=== PATIENT | female | born 1980 | race Caucasian/White ===

== ENCOUNTER 2016-08-14 09:17 | Emergency (ER) | payer OTHER ==
[~2016-08-14] VITALS: Ht 165.1 cm; Wt 66.2 kg
[~2016-08-14 09:17] MED LIST: AMOX875T PO
[2016-08-14] MEDS ORDERED: IV NORMAL SALINE 1000ML BAG 1,000 ML IV ONE (09:45)
[2016-08-14] MEDS ORDERED: KETOROLAC TROMETHAMINE 30 MG/ML INJ. IV ONE (09:45)
[2016-08-14 09:56] LABS: BILIRUBIN,URINE NEGATIVE (NEG); GLUCOSE,URINE NEGATIVE (NEG); NITRITE,URINE NEGATIVE (NEG); PROTEIN,URINE NEGATIVE (NEG-TRACE); UROBILINOGEN,URINE 0.2 mg/dL (0.2 mg/dL)
[2016-08-14 10:17] LABS: BACTERIA,URINE MOD /HPF (0-FEW); RBC,URINE 0 /HPF (0-2); SQUAMOUS EPITHELIAL CELL,UR MOD /LPF
--- NOTE | 2016-08-14 10:24 | PHYS DOC ---
Past Medical History Past Medical History: Asthma Past Surgical History: , Tonsillectomy, Tubal ligation Additional Past Surgical Histo: BILAT MYRINGOTOMY W/ TUBES Alcohol Use: None Drug Use: None Adult General Chief Complaint Chief Complaint: ABDOMINAL PAIN HPI HPI Patient is a 36 year old female with history of asthma who presents today with mild right sided abdominal pain that began 2 days ago when her menstrual cycle began. Patient denies any chance she is , she states she's had a tubal ligation. Denies any urgency frequency or dysuria. Denies any fever. Denies any nausea vomiting. Patient states she also has right flank pain and fevers. Review of Systems Review of Systems Constitutional: Denies fever or chills [] Eyes: Denies change in visual acuity, redness, or eye pain [] HENT: Denies nasal congestion or sore throat [] Respiratory: Denies cough or shortness of breath [] Cardiovascular: No additional information not addressed in HPI [] GI: Right sided abdominal : right flank pain Musculoskeletal: Denies back pain or joint pain [] Integument: Denies rash or skin lesions [] Neurologic: Denies headache, focal weakness or sensory changes [] Endocrine: Denies polyuria or polydipsia [] Current Medications Current Medications Current Medications Medications (Trade) Dose Ordered Sig/Jana Start Time Stop Time Status Last Admin Dose Admin Info (Do NOT chart on this entry -- for MONITORING) 1 each PRN DAILY PRN 08/14/16 11:00 08/16/16 10:59 Iohexol (Omnipaque 300 Mg/ml) 75 ml 1X ONCE 08/14/16 11:00 08/14/16 11:01 DC Ketorolac Tromethamine (Toradol) 30 mg 1X ONCE 08/14/16 09:45 08/14/16 09:46 DC 08/14/16 10:00 30 MG Sodium Chloride 1,000 ml @ 1,000 mls/hr 1X ONCE 08/14/16 09:45 08/14/16 10:44 DC 08/14/16 10:00 1,000 MLS/HR Allergies Allergies Allergies Coded Allergies Type Severity Reaction Last Updated Verified codeine Allergy Unknown Nausea and Vomiting 05/28/14 No Physical Exam Physical Exam Constitutional: Well developed, well nourished, no acute distress, non-toxic appearance. [] HENT: Normocephalic, atraumatic, bilateral external ears normal, oropharynx moist, no oral exudates, nose normal. [] Eyes: PERRLA, EOMI, conjunctiva normal, no discharge. [] Neck: Normal range of motion, no tenderness, supple, no stridor. [] Cardiovascular:Heart rate regular rhythm, no murmur [] Lungs & Thorax: Bilateral breath sounds clear to auscultation [] Abdomen: Bowel sounds normal, soft, no tenderness, no masses, no pulsatile masses. Negative psoas sign, negative obturator sign, negative Rovsing sign No guarding no rebound pain or tenderness Pelvic exam External pelvic appears normal. Cervix not well visualized. No CMT. No adnexal tenderness. Small amount of bright red blood in the vaginal vault. Skin: Warm, dry, no erythema, no rash. [] Back: No tenderness, no CVA tenderness. [] Extremities: No tenderness, no cyanosis, no clubbing, ROM intact, no edema. [] Neurologic: Alert and oriented X 3, normal motor function, normal sensory function, no focal deficits noted. [] Psychologic: Affect normal, judgement normal, mood normal. [] Current Patient Data Vital Signs Vital Signs Date Time Temp Pulse Resp B/P (MAP) Pulse Ox O2 Delivery O2 Flow Rate FiO2 08/14/16 09:25 98.4 88 18 128/76 (93) 100 Room Air 98.4 Lab Values Laboratory Tests Test 08/14/16 09:40 08/14/16 09:55 Urine Collection Type Unknown Urine Color Yellow Urine Clarity Clear Urine pH 6.0 Urine Specific [place] <=1.005 Urine Protein Negative mg/dL (NEG-TRACE) Urine Glucose (UA) Negative mg/dL (NEG) Urine Ketones (Stick) Negative mg/dL (NEG) Urine Blood Moderate (NEG) Urine Nitrite Negative (NEG) Urine Bilirubin Negative (NEG) Urine Urobilinogen Dipstick 0.2 mg/dL (0.2 mg/dL) Urine Leukocyte Esterase Moderate (NEG) Urine RBC 0 /HPF (0-2) Urine WBC 11-20 /HPF (0-4) Urine Squamous Epithelial Cells Mod /LPF Urine Bacteria Mod /HPF (0-FEW) White Blood Count 9.1 x10^3/uL (4.0-11.0) Red Blood Count 3.99 x10^6/uL (3.50-5.40) Hemoglobin 9.6 g/dL (12.0-15.5) L Hematocrit 29.7 % (36.0-47.0) L Mean Corpuscular Volume 75 fL (79-100) L Mean Corpuscular Hemoglobin 24 pg (25-35) L Mean Corpuscular Hemoglobin Concent 32 g/dL (31-37) Red Cell Distribution Width 18.3 % (11.5-14.5) H Platelet Count 189 x10^3/uL (140-400) Neutrophils (%) (Auto) 70 % (31-73) Lymphocytes (%) (Auto) 19 % (24-48) L Monocytes (%) (Auto) 10 % (0-9) H Eosinophils (%) (Auto) 1 % (0-3) Basophils (%) (Auto) 0 % (0-3) Neutrophils # (Auto) 6.3 x10^3uL (1.8-7.7) Lymphocytes # (Auto) 1.7 x10^3/uL (1.0-4.8) Monocytes # (Auto) 0.9 x10^3/uL (0.0-1.1) Eosinophils # (Auto) 0.0 x10^3/uL (0.0-0.7) Basophils # (Auto) 0.0 x10^3/uL (0.0-0.2) Sodium Level 139 mmol/L (136-145) Potassium Level 3.4 mmol/L (3.5-5.1) L Chloride Level 106 mmol/L (98-107) Carbon Dioxide Level 27 mmol/L (21-32) Anion Gap 6 (6-14) Blood Urea Nitrogen 4 mg/dL (7-20) L Creatinine 0.8 mg/dL (0.6-1.0) Estimated GFR (Cockcroft-Gault) 82.1 BUN/Creatinine Ratio 5 (6-20) L Glucose Level 109 mg/dL (70-99) H Calcium Level 8.6 mg/dL (8.5-10.1) Total Bilirubin 0.7 mg/dL (0.2-1.0) Aspartate Amino Transferase (AST) 22 U/L (15-37) Alanine Aminotransferase (ALT) 28 U/L (14-59) Alkaline Phosphatase 48 U/L (46-116) Total Protein 6.8 g/dL (6.4-8.2) Albumin 3.2 g/dL (3.4-5.0) L Albumin/Globulin Ratio 0.9 (1.0-1.7) L Lipase 98 U/L (73-393) Laboratory Tests 08/14/16 09:55 Laboratory Tests 08/14/16 09:55 Microbiology 08/14/16 Wet Prep - Final, Complete EKG EKG [] Radiology/Procedures Radiology/Procedures [] Course & Med Decision Making Course & Med Decision Making Pertinent Labs and Imaging studies reviewed. (See chart for details) This is a 36-year-old female patient who presents today with right sided abdominal pain that began 2 days ago when her menstrual cycle began, right flank pain and fevers. Patient is afebrile in the ED. CBC with a normal WBC. Hemoglobin 9.6, hematocrit 29.7, CMP lipase with no acute findings. Urine positive for UTI. Patient has no abdominal tenderness on exam. Patient's symptoms are probably from the UTI. Wet prep was also positive for bacterial vaginosis. Patient was discharged with Flagyl and Cipro for UTI. She is to follow-up with her own PCP in one week. She is provided return precautions and discharged in stable condition. Johan Disclaimer Johan Disclaimer This electronic medical record was generated, in whole or in part, using a voice recognition dictation system. Departure Departure Impression: Primary Impression: Urinary tract infection Additional Impressions: Bacterial vaginosis Anemia Disposition: 01 HOME, SELF-CARE Condition: STABLE Referrals: NO PCP (PCP) Follow-up with the primary care doctor in the next 3-7 days Patient Instructions: Bacterial Vaginosis, [id number], Fever, Adult, Urinary Tract Infection Additional Instructions: You were seen for urinary tract infection and bacterial vaginosis. Take the prescribed medicines as ordered. Ensure you complete your antibiotics. Your hemoglobin was 9.6. This is slightly low, it could be from your menstrual cycle. Consider taking [id number] vitamins. Follow-up with your doctor in the next 7 days. Come back to the ED symptoms worsen. Scripts Hydrocodone/Apap 5-325 (NORCO 5-325 TABLET) 1 Each Tablet 1-2 TAB PO Q4-6HRS, #10 TAB Prov: MUTUNGA,NICKOLAS RN FIRST ASSISTANT 6/28/17 Ciprofloxacin Hcl (CIPRO) 500 Mg Tablet 1 TAB PO BID, #14 TAB Prov: NICKOLAS KENDALL APRN 08/14/16 Metronidazole (FLAGYL) 500 Mg Tablet 1 TAB PO BID, #14 TAB Prov: NICKOLAS KENDALL APRN 08/14/16 Problem Qualifiers Primary Impression: Urinary tract infection Urinary tract infection type: site unspecified Hematuria presence: without hematuria Qualified Codes: N39.0 - Urinary tract infection, site not specified Additional Impressions: Anemia Anemia type: unspecified type Qualified Codes: D64.9 - Anemia, unspecified NICKOLAS KENDALL APRN Aug 14, 2016 10:24
[2016-08-14 10:42] LABS: BASO % 0 % (0-3); EOS % 1 % (0-3); HEMATOCRIT 29.7 % (36.0-47.0); HEMOGLOBIN 9.6 g/dL (12.0-15.5); LYMPH # 1.7 x10^3/uL (1.0-4.8); LYMPH % 19 % (24-48); MEAN CORPUSCULAR HEMOGLOBIN 24 pg (25-35); MEAN CORPUSCULAR HGB CONC 32 g/dL (31-37); MEAN CORPUSCULAR VOLUME 75 fL (79-100); MONO % 10 % (0-9); NEUT % 70 % (31-73); PLATELET COUNT 189 x10^3/uL (140-400); RED BLOOD COUNT 3.99 x10^6/uL (3.50-5.40); RED CELL DISTRIBUTION WIDTH 18.3 % (11.5-14.5); WHITE BLOOD COUNT 9.1 x10^3/uL (4.0-11.0)
[2016-08-14 10:46] LABS: CALCIUM 8.6 mg/dL (8.5-10.1); CREATININE 0.8 mg/dL (0.6-1.0); GFR 82.1; POTASSIUM 3.4 mmol/L (3.5-5.1)
[2016-08-14] MEDS ORDERED: CONTRAST GIVEN MC PRN (11:00)
[2016-08-14] MEDS ORDERED: IOHEXOL 300 MG/ML 75 ML VIAL IV ONE (11:00)
[2016-08-14 11:01] LABS: ALBUMIN 3.2 g/dL (3.4-5.0); ALBUMIN/GLOBULIN RATIO 0.9 (1.0-1.7); TOTAL BILIRUBIN 0.7 mg/dL (0.2-1.0); TOTAL PROTEIN 6.8 g/dL (6.4-8.2)
[2016-08-14] MEDS ORDERED: CIPR500T94 PO (11:17)
[2016-08-14] MEDS ORDERED: METR500T PO (11:17)
[2016-08-14] MEDS ORDERED: HYDR-971 PO (11:17)
[2016-08-14 11:32] VITALS: BP 117/65
== END 2016-08-14 11:30 | disposition home or self-care (01) ==
LOC: ER 09:17
DX: N39.0 Urinary tract infection, site not specified (principal); N76.0 Acute vaginitis; D64.9 Anemia, unspecified; J45.909 Unspecified asthma, uncomplicated; Z88.5 Allergy status to narcotic agent; Z98.51 Tubal ligation status; Z98.890 Other specified postprocedural states
CPT/HCPCS: 36415; 80053; 81001; 81025; 83690; 85027; 87491; 87591; 96361; 96374; 99284; J1885; J7030; Q0111

== ENCOUNTER 2016-12-08 04:08 | Emergency (ER) | payer OTHER ==
[~2016-12-08] VITALS: Ht 165.1 cm; Wt 66.2 kg
[~2016-12-08 04:08] MED LIST changes: +CIPR500T94 PO; +HYDR-971 PO; +METR500T PO
[2016-12-08 04:15] VITALS: BP 139/86
--- NOTE | 2016-12-08 04:31 | PHYS DOC ---
Past Medical History Past Medical History: Asthma Past Surgical History: , Tonsillectomy, Tubal ligation Additional Past Surgical Histo: BILAT MYRINGOTOMY W/ TUBES Alcohol Use: None Drug Use: None Adult General Chief Complaint Chief Complaint: PAIN ON URINATION HPI HPI Patient is a 36 year old F who presents with pelvic pain after intercourse. Patient states she had intercourse around 1:30 this morning and ever since then she's had increased lower pelvic pain and burning with urination. Patient denies any vaginal discharge or vaginal bleeding. Last menstrual period was last month. Patient denies any history of STDs. Patient denies any fevers. Patient denies any nausea/vomiting/diarrhea. Patient has no other complaints. Review of Systems Review of Systems GEN: Denies fevers, chills, sweats HEENT: Denies blurred vision, sore throat CV: Denies chest pain RESP: Denies shortness of air, cough GI: Pelvic pain NEURO: Denies confusion, dizziness MSK: Denies weakness, joint pain/swelling Allergies Allergies Allergies Coded Allergies Type Severity Reaction Last Updated Verified codeine Allergy Unknown Nausea and Vomiting 05/28/14 No Physical Exam Physical Exam GEN.: No apparent distress. Alert and oriented. HEENT: Head is normocephalic, atraumatic NECK: Supple. LUNGS: CTAB. HEART: RRR, S1, S2 present. Peripheral pulses intact ABDOMEN: Soft, lower pelvic pain with palpation and suprapubic pain with palpation, no rebound tenderness, no guarding, no abdominal distention. Positive bowel sounds. : External vaginal exam unremarkable with no lesions, speculum exam shows no foreign body no vaginal bleeding no discharge from the cervix, bimanual exam shows right adnexal tenderness with no mass, no cervical motion tenderness EXTREMITIES: Without any cyanosis. NEUROLOGIC: Normal speech, normal tone PSYCHIATRIC: Normal affect, normal mood. SKIN: No ulcerations Current Patient Data Vital Signs Vital Signs Date Time Temp Pulse Resp B/P (MAP) Pulse Ox O2 Delivery O2 Flow Rate FiO2 12/08/16 04:15 98.7 68 16 139/86 (103) 100 Room Air 98.7 Lab Values Laboratory Tests Test 12/08/16 04:15 12/08/16 04:20 12/08/16 04:24 Urine Collection Type Unknown Urine Color Yellow Urine Clarity Clear Urine pH 5.5 Urine Specific [place] <=1.005 Urine Protein Negative mg/dL (NEG-TRACE) Urine Glucose (UA) Negative mg/dL (NEG) Urine Ketones (Stick) Negative mg/dL (NEG) Urine Blood Negative (NEG) Urine Nitrite Negative (NEG) Urine Bilirubin Negative (NEG) Urine Urobilinogen Dipstick 0.2 mg/dL (0.2 mg/dL) Urine Leukocyte Esterase Negative (NEG) Urine RBC Occ /HPF (0-2) Urine WBC 1-4 /HPF (0-4) Urine Squamous Epithelial Cells Mod /LPF Urine Bacteria 0 /HPF (0-FEW) Urine Mucus Slight /LPF White Blood Count 9.2 x10^3/uL (4.0-11.0) Red Blood Count 4.19 x10^6/uL (3.50-5.40) Hemoglobin 10.7 g/dL (12.0-15.5) L Hematocrit 33.4 % (36.0-47.0) L Mean Corpuscular Volume 80 fL (79-100) Mean Corpuscular Hemoglobin 26 pg (25-35) Mean Corpuscular Hemoglobin Concent 32 g/dL (31-37) Red Cell Distribution Width 15.2 % (11.5-14.5) H Platelet Count 211 x10^3/uL (140-400) Neutrophils (%) (Auto) 51 % (31-73) Lymphocytes (%) (Auto) 39 % (24-48) Monocytes (%) (Auto) 7 % (0-9) Eosinophils (%) (Auto) 2 % (0-3) Basophils (%) (Auto) 1 % (0-3) Neutrophils # (Auto) 4.7 x10^3uL (1.8-7.7) Lymphocytes # (Auto) 3.6 x10^3/uL (1.0-4.8) Monocytes # (Auto) 0.7 x10^3/uL (0.0-1.1) Eosinophils # (Auto) 0.2 x10^3/uL (0.0-0.7) Basophils # (Auto) 0.1 x10^3/uL (0.0-0.2) Sodium Level 137 mmol/L (136-145) Potassium Level 3.5 mmol/L (3.5-5.1) Chloride Level 101 mmol/L (98-107) Carbon Dioxide Level 25 mmol/L (21-32) Anion Gap 11 (6-14) Blood Urea Nitrogen 9 mg/dL (7-20) Creatinine 0.8 mg/dL (0.6-1.0) Estimated GFR (Cockcroft-Gault) 82.1 BUN/Creatinine Ratio 11 (6-20) Glucose Level 107 mg/dL (70-99) H Calcium Level 8.7 mg/dL (8.5-10.1) Total Bilirubin 0.3 mg/dL (0.2-1.0) Aspartate Amino Transferase (AST) 14 U/L (15-37) L Alanine Aminotransferase (ALT) 15 U/L (14-59) Alkaline Phosphatase 38 U/L (46-116) L Total Protein 7.3 g/dL (6.4-8.2) Albumin 3.6 g/dL (3.4-5.0) Albumin/Globulin Ratio 1.0 (1.0-1.7) POC Urine HCG, Qualitative Hcg negative (Negative) Laboratory Tests 12/08/16 04:20 Laboratory Tests 12/08/16 04:20 Microbiology 12/08/16 Wet Prep - Final, Complete EKG EKG [] Radiology/Procedures Radiology/Procedures Pelvic ultrasound with transvaginal unremarkable[] Course & Med Decision Making Course & Med Decision Making Pertinent Labs and Imaging studies reviewed. (See chart for details) ED course: Patient was seen and examined emergency room CBC, CMP, UA, pelvic exam with swabs, ultrasound transvaginal was ordered 0543: Patient was updated on lab results and ultrasound results. Patient states her abdominal pain was better however still having some right-sided pain with palpation. Recommended a CT scan abdomen pelvis to help rule out appendicitis. Patient did not fill that she had appendicitis and would like to hold on CT scan secondary to the radiation and with the follow-up with family doctor instead. Explained all the risks of acute appendicitis with the patient in which she understands and still would like to decline the CT scan and follow-up with her PCP and will return if symptoms worse. Patient stable for discharge. MDM: After reviewing the chart, CC/HPI/PMH, physical exam, [lab results], [ radiological results], I do not believe the patient has an acute pelvic infection warranting further workup and/or admission at this time. I did recommend a CT scan of the abdomen and pelvis to help rule out appendicitis since her pain has become right lower quadrant nature. Patient declined a CT scan under seen all risks including and disability. The vaginal exam did not show drainage that would be consistent with STD therefore I did not prophylactically treat the patient and will await swabs. Patient is stable for discharge. Recommended [id number] pain medication for symptomatic treatment. Additional verbal discharge instructions were provided to the patient and that if symptoms get worse or any new symptoms arise that are worrisome to the patient she is to return to the emergency room immediately [] Dragon Disclaimer Dragon Disclaimer This electronic medical record was generated, in whole or in part, using a voice recognition dictation system. Departure Departure Impression: Primary Impression: Pelvic pain Additional Impression: Abdominal pain Disposition: 01 HOME, SELF-CARE Condition: IMPROVED Referrals: NO PCP (PCP) Patient Instructions: Abdominal Pain, Possible Early Appendicitis, Pelvic Pain , Female Additional Instructions: Please follow-up with your family physician in the next one to 2 days and return if symptoms increase Problem Qualifiers LAURA RADER DO Dec 08, 2016 04:31
[2016-12-08 04:33] LABS: BASO # 0.1 x10^3/uL (0.0-0.2); BASO % 1 % (0-3); EOS % 2 % (0-3); HEMATOCRIT 33.4 % (36.0-47.0); HEMOGLOBIN 10.7 g/dL (12.0-15.5); LYMPH # 3.6 x10^3/uL (1.0-4.8); LYMPH % 39 % (24-48); MEAN CORPUSCULAR HEMOGLOBIN 26 pg (25-35); MEAN CORPUSCULAR HGB CONC 32 g/dL (31-37); MEAN CORPUSCULAR VOLUME 80 fL (79-100); MONO % 7 % (0-9); NEUT % 51 % (31-73); PLATELET COUNT 211 x10^3/uL (140-400); RED BLOOD COUNT 4.19 x10^6/uL (3.50-5.40); RED CELL DISTRIBUTION WIDTH 15.2 % (11.5-14.5); WHITE BLOOD COUNT 9.2 x10^3/uL (4.0-11.0)
[2016-12-08 04:36] LABS: BILIRUBIN,URINE NEGATIVE (NEG); GLUCOSE,URINE NEGATIVE (NEG); NITRITE,URINE NEGATIVE (NEG); PH,URINE 5.5; PROTEIN,URINE NEGATIVE (NEG-TRACE); UROBILINOGEN,URINE 0.2 mg/dL (0.2 mg/dL)
[2016-12-08 04:47] LABS: CALCIUM 8.7 mg/dL (8.5-10.1); CREATININE 0.8 mg/dL (0.6-1.0); GFR 82.1; POTASSIUM 3.5 mmol/L (3.5-5.1)
[2016-12-08 04:52] LABS: ALBUMIN 3.6 g/dL (3.4-5.0); TOTAL BILIRUBIN 0.3 mg/dL (0.2-1.0); TOTAL PROTEIN 7.3 g/dL (6.4-8.2)
[2016-12-08 05:00] LABS: BACTERIA,URINE 0 /HPF (0-FEW); RBC,URINE OCC /HPF (0-2); SQUAMOUS EPITHELIAL CELL,UR MOD /LPF
--- NOTE | 2016-12-08 05:32 | RAD ---
Pelvic ultrasound dated 12/08/2016. No comparison available. Clinical indication: Pelvic pain. FINDINGS: Transabdominal and transvaginal imaging performed. Uterus measures 11.1 x 6.8 x 5.6 cm. No focal uterine mass. Endometrial complex normal in thickness for age measuring 1.2 cm. Right ovary measures 4.4 x 3.4 x 3.0 cm. Left ovary measures 2.9 x 2.3 x 2.3 cm. No adnexal mass. Normal-appearing follicles. There is a small amount of free fluid. IMPRESSION: 1. Small amount of free pelvic fluid, nonspecific. 2. Otherwise normal appearance of the uterus and ovaries. Electronically signed by: Pollo Jack MD (12/08/2016 5:29 AM) [id number]
--- NOTE | 2016-12-16 16:37 | VNOTE ---
CALL BACK NOTE CALL BACK Microbiology 12/08/16 Wet Prep - Final, Complete Patient was positive for bacterial vaginosis and not treated, called patient and gave her results. Prescription for Flagyl called into [facility] on [facility]. NICKOLAS KENDALL APRN Dec 16, 2016 16:37
== END 2016-12-08 06:18 | disposition home or self-care (01) ==
LOC: ER 04:08
DX: R10.2 Pelvic and perineal pain (principal); R10.9 Unspecified abdominal pain; R42 Dizziness and giddiness; J45.909 Unspecified asthma, uncomplicated; Z88.5 Allergy status to narcotic agent
CPT/HCPCS: 36415; 76830; 76856; 80053; 81001; 81025; 85025; 87491; 87591; 99285; Q0111

== ENCOUNTER 2017-02-14 17:14 | Emergency (ER) | payer OTHER | END 2017-02-14 18:23 | disposition home or self-care (01) | LOC: ER 17:14 | DX: R05 Cough (principal); H66.93 Otitis media, unspecified, bilateral; F17.200 Nicotine dependence, unspecified, uncomplicated; J45.909 Unspecified asthma, uncomplicated; Z98.51 Tubal ligation status; Z96.22 Myringotomy tube(s) status; Z88.5 Allergy status to narcotic agent | CPT/HCPCS: 99283 ==

== ENCOUNTER 2017-07-06 00:30 | Emergency (ER) | payer OTHER ==
[2017-07-06] MEDS: LIDOCAINE 2% 20 ML VIAL. IJ (01:14)
== END 2017-07-06 02:36 | disposition home or self-care (01) ==
LOC: ER 00:30
DX: S69.92XA Unspecified injury of left wrist, hand and finger(s), initial encounter (principal); J45.909 Unspecified asthma, uncomplicated; W23.0XXA Caught, crushed, jammed, or pinched between moving objects, initial encounter; Y93.89 Activity, other specified; Y99.8 Other external cause status; Y92.89 Other specified places as the place of occurrence of the external cause
CPT/HCPCS: 11750; 11760; 99284

== ENCOUNTER 2017-08-06 18:42 | Emergency (ER) | payer OTHER | END 2017-08-06 20:46 | disposition home or self-care (01) | LOC: ER 20:46 | DX: S13.9XXA Sprain of joints and ligaments of unspecified parts of neck, initial encounter (principal); I10 Essential (primary) hypertension; M79.1 Myalgia; M25.512 Pain in left shoulder; M25.511 Pain in right shoulder; J45.909 Unspecified asthma, uncomplicated; Z88.5 Allergy status to narcotic agent; V43.42XA Person boarding or alighting a car injured in collision with other type car, initial encounter; Y93.89 Activity, other specified; Y99.8 Other external cause status; Y92.488 Other paved roadways as the place of occurrence of the external cause | CPT/HCPCS: 72125; 99284-25 ==